=== PATIENT | male | born 1960 | race Hispanic/Latino ===

== ENCOUNTER 2017-03-17 02:59 | Observation (INO) | payer MEDICARE, OTHER ==
[2017-03-17 03:00] VITALS: BMI 26.5
--- NOTE | 2017-03-17 03:04 | EDPD ---
HPI Stroke - General Time Seen by Provider: 03/17/17 03:01 Historian: Patient - History of Present Illness Narrative History of Present Illness (Free Text): 03/17/17 03:03 Michael Sanchez is a 56 year old male, whose past medical history includes PE, CVA with residual left hand weakness, COPD, herniated discs, and osteoarthritis , who presents to the Emergency department who presents to the Emergency department complaining of numbness tonight. Patient states at 01:30 tonight he began experiencing numbness to bilateral hands while lying down in bed watching TV. Patient also reports numbness to bilateral feet. Patient denies any headache , dizziness, vision changes, focal neurological deficits, chest pain, shortness of breath, nausea, vomiting, neck pain,or any other complaints. PMD: Dr. Galo Barrera Date:: 03/17/17 Time: 03:03 Onset:: Hours Timing: Currently Symptomatic Context: Home Associated Symptoms: Numbness Exacerbated by: Nothing Relieved by: Nothing - Location Location: None Locate Right: Upper extremity Locate Left: Upper extremity rTPA Inclusion/Exclusion - Refusal of Treatment Patient Refused Treatment: No - Inclusion Criteria for Altepase Patient is 18 years or Older: Yes The Clinical Diagnosis of Ischemic Stroke That is Causing a Potentially Disabling Neurological Deficit: No Time of Onset is Well Established to be Less Than 270 Minute Before Treatment Would Begin: Yes Risk/Benefit Discussed With Patient/Family Member Present: Yes - Exclusion Criteria for Altepase Uncontrolled Hypertension at Time of Treatment (Systolic BP above 185 or Diastolic BP above 110 mmHg): No Active Internal Bleeding: No Known Bleeding Diathesis Including but Not Limited to: Platelets Below 100,000/ mm,PTT Above 40 sec After Heparin Use, Current Use of Oral Anitcoagulant With INR Greater Than 1.7 or PT Greater Than 15 secs: No Evidence of an Intracranial Hemorrhage: No Evidence of Major Acute Infarct With Signs Greater Than 1/3 MCA Territory: No Suspicion of Subarachnoid Hemorrhage on Pretreatment Evaluation Even if CT Head Negative For Hemorrhage: No - Warning to TPA With Conditions Following Conditions Weighed Against Anticipated Benefit: Yes Condition: Stroke Serevity Too Mild Past Medical History - Provider Review Nursing Documentation Reviewed: Yes - Infectious Disease Hx of Infectious Diseases: None - Cardiac Hx Cardiac Disorders: Yes - Pulmonary Hx Respiratory Disorders: Yes Hx Pneumonia: Yes - Neurological Hx Neurological Disorder: Yes HX Cerebrovascular Accident: Yes (left hand weakness) - HEENT Hx HEENT Disorder: Yes (USES GLASSES) - Renal Hx Renal Disorder: No - Endocrine/Metabolic Hx Endocrine Disorders: No - Hematological/Oncological Hx Blood Disorders: No - Integumentary Hx Dermatological Disorder: No Other/Comment: SCARRING FROM SURGERIES - Musculoskeletal/Rheumatological Hx Musculoskeletal Disorders: Yes Hx Arthritis: Yes Hx Falls: Yes Other/Comment: MULTIPLE SURGERIES FROM INJURY SUFFERED WHEN [facility] WAS BOMBED - WORKING AT THE GARAGE. FELL OFF A LADDER. BILATERAL ANKLE METAL PLATES PLACED, BILATERAL WRIST WITH METAL PLATES PLACED,LAMINECTOMY,DISLOCATED HIP,5 KNEE SURGERIES. - Gastrointestinal Hx Gastrointestinal Disorders: No - Genitourinary/Gynecological Hx Genitourinary Disorders: No - Psychiatric Hx Psychophysiologic Disorder: No Hx Anxiety: Yes Hx Substance Use: No - Surgical History Hx Orthopedic Surgery: Yes (LAMINECTOMY,5 KNEE SX,BILATERALWRIST,ANKLE WITH METAL PLATE,DISLOCATED HIP) Other/Comment: TONSILLECTOMY - Anesthesia Hx Anesthesia: Yes Hx Anesthesia Reactions: No Hx Malignant Hyperthermia: No Family/Social History - Family/Social History Family History: Non-Contributory - Review Nursing documentation reviewed.: Yes Allergies/Home Meds Allergies/Adverse Reactions: Allergies No Known Allergies Allergy (Verified 07/15/16 16:36) Home Medications: Home Meds Medication Instructions Recorded Confirmed ALPRAZolam [Xanax] 1.5 mg PO QID 03/17/17 03/17/17 Esomeprazole Magnesium [Nexium] 20 mg PO DAILY 03/17/17 03/17/17 Oxycodone HCl [Oxycontin] 30 mg PO QID 03/17/17 03/17/17 Zolpidem Tartrate [Ambien] 10 mg PO HS 03/17/17 03/17/17 Review of Systems - Physician Review All systems were reviewed & negative as marked: Yes - Review of Systems Constitutional: Normal Eyes: Normal ENT: Normal Respiratory: Normal. absent: SOB, Cough Cardiovascular: Normal. absent: Chest Pain Gastrointestinal: Normal. absent: Abdominal Pain, Diarrhea, Vomiting Genitourinary Male: Normal. absent: Dysuria, Frequency, Hematuria, Urinary Output Changes Musculoskeletal: Normal, Back Pain. absent: Neck Pain Skin: Normal Neurological: Other (+numbness). absent: Headache, Dizziness Endocrine: Normal Hemo/Lymphatic: Normal Psychiatric: Normal ED Stroke Physical Exam Vital Signs Reviewed: Yes Temperature: Afebrile Blood Pressure: Normal Pulse: Regular Respiratory Rate: Normal Appearance: Positive for: Well-Appearing, Non-Toxic, Comfortable Pain Distress: None Mental Status: Positive for: Alert and Oriented X 3 - Systems Exam Head: Present: Atraumatic, Normocephalic Pupils: Present: PERRL Extroacular Muscles: Present: EOMI Conjunctiva: Present: Normal Mouth: Present: Moist Mucous Membranes Neck: Present: Normal Range of Motion Respiratory/Chest: Present: Clear to Auscultation, Good Air Exchange. No: Respiratory Distress, Accessory Muscle Use Cardiovascular: Present: Regular Rate and Rhythm, Normal S1, S2. No: Murmurs Abdomen: Present: Normal Bowel Sounds. No: Tenderness, Distention, Peritoneal Signs Back: Present: GCS, CN, SP Upper Extremity: Present: Normal Inspection. No: Cyanosis, Edema Lower Extremity: Present: Normal Inspection. No: Edema Neurologic: Present: GCS=15, CN II-XII Intact, Speech Normal, Motor Func Grossly Intact, Normal Sensory Function, Normal Cerebellar Funct, Memory Normal. No: Pronator Drift, Facial Droop Skin: Present: Warm, Dry, Normal Color. No: Rashes Lymphatic: Present: OX3, NI, NC Psychiatric: Present: Alert, Oriented x 3, Normal Insight, Normal Concentration Medical Decision Making ED Course and Treatment: 03/17/17 03:03 Impression: 56 year old male complaining of numbness to bilateral hands and feet. Differential Diagnosis included but are not limited to: TIA vs. CVA Plan: -- CT Head w/o contrast -- EKG -- Chest X-ray -- Labs, lipid panel, troponin, blood type and screen -- Reassess and disposition Prior Visits: Notes and results from previous visits were reviewed. On 07/15/2016, pt was seen in the Emergency department for productive cough, chills, and fever. Pt was admitted to the hospital for further evaluation. Progress Notes: 03/17/17 03:03 Pt seen on arrival to Emergency department. Code Stroke called. Pt taken to CT scan. 03/17/17 03:29 Reviewed EKG, NSR at [address]-segment elevations or depressions, no T-wave inversions, normal intervals. 03/17/17 03:32 Reviewed Chest X-ray, shows no acute processes. 03/17/17 03:55 03/17/17 04:[address] Silva, who is aware and agrees with plan. Accepts pt in to his service. Pt will go to Telemetry observation for TIA. Pt is no acute distress. Discussed results and hospital observation plan with pt , who is aware and verbalizes understanding. 03/17/17 05:21 CT Head shows: Brain: Extensive right cerebral encephalomalacia. No hemorrhage. No significant white matter disease. No edema. Ventricles: No acute findings. No ventriculomegaly. Bones/joints: No acute findings. No acute fracture. Soft tissues: No acute findings. Sinuses: No acute findings. No acute sinusitis. Mastoid air cells: No acute findings. No mastoid effusion. IMPRESSION: Extensive right cerebral encephalomalacia. No definite acute findings. If there is continued clinical concern for acute ischemia, consider diffusion-weighted MRI imaging. - Lab Interpretations I have reviewed the lab results: Yes - RAD Interpretation [employer]: ED Physician, Radiologist - EKG Interpretation Interpreted by ED Physician: Yes Type: 12 lead EKG - Scribe Statement The provider has reviewed the documentation as recorded by the Scribe Reyna Benson Provider Scribe Attestation: All medical record entries made by the Scribe were at my direction and personally dictated by me. I have reviewed the chart and agree that the record accurately reflects my personal performance of the history, physical exam, medical decision making, and the department course for this patient. I have also personally directed, reviewed, and agree with the discharge instructions and disposition. NIHSS Scale ([place]) Time Performed: 03:03 - How Severe is the Stoke Baseline Level of Consciousness: 0=Alert LOC to Questions: 0=Both comments correct LOC to commands: 0=Obeys both correctly Best Gaze: 0=Normal Visual: 0=No visual loss Facial: 0=Normal Motor Arm - Left: 0=No drift Motor Arm - Right: 0=No drift Motor Leg - Left: 0=No drift Motor Leg - Right: 0=No drift Limb Ataxia: 0=Absent Sensory: 0=Normal Best Language: 0=No aphasia Dysarthia: 0=Normal articulation Extinction & Inattention (Neglect): 0=Normal, no object Score: 0 Risk Level: No Stroke Risk Disposition/Present on Arrival - Present on Arrival Any Indicators Present on Arrival: No History of DVT/PE: No History of Uncontrolled Diabetes: Yes Urinary Catheter: No History Surgical Site Infection Following: Orthopedic Procedures - Disposition Have Diagnosis and Disposition been Completed?: Yes Diagnosis: Transient ischemic attack Disposition: HOSPITALIZED Disposition Time: 04:25 Condition: GOOD
[2017-03-17 03:40] VITALS: BP 119/83; PULSE 85; RESP 14; TEMP 98.5; O2SAT 97
[2017-03-17 03:47] LABS: BASO # 0.03 K/mm3 (0.0-2.0); BASO % 0.3 % (0.0-3.0); EOS # 0.3 (0.0-0.7); GRAN # 6.02 (1.4-6.5); GRAN % 59.5 % (50.0-68.0); HEMATOCRIT 40.6 % (42.0-52.0); LYMPH # 3.1 (1.2-3.4); LYMPH % 30.7 % (22.0-35.0); MEAN CELL VOLUME 91.4 fl (80.0-105.0); MEAN CORPUSCULAR HEMOGLOBIN 31.3 pg (25.0-35.0); MEAN CORPUSCULAR HGB CONC 34.2 g/dl (31.0-37.0); MEAN PLATELET VOLUME 10.2 fl (7.0-11.0); MONO # 0.7 (0.1-0.6); MONO % 6.5 % (1.0-6.0); RED CELL DISTRIBUTION WIDTH 13.2 % (11.5-14.5); WHITE BLOOD COUNT 10.1 10^3/ul (4.5-11.0)
[2017-03-17 03:49] LABS: ALB/GLOB RATIO 1.5 (1.1-1.8); ALKALINE PHOSPHATASE 60 U/L (38-133); ALT/SGPT 36 U/L (7-56); AST/SGOT 24 U/L (15-59); BILIRUBIN,TOTAL 0.2 mg/dL (0.2-1.3); BLOOD UREA NITROGEN 14 mg/dL (7-21); CALCIUM 9.1 mg/dL (8.4-10.5); CARBON DIOXIDE 27 mmol/L (21-33); CHLORIDE 102 mmol/L (98-107); CHOLESTEROL 183 mg/dL (130-200); GFR AFRICAN-AMERICAN > 60; GLUCOSE,RANDOM 115 mg/dL (70-110); POTASSIUM 3.9 mmol/L (3.6-5.0); SODIUM 139 mmol/L (132-148)
[2017-03-17 03:55] LABS: INR 1.15 (0.93-1.08); PARTIAL THROMBOPLASTIN TIME 29.2 Seconds (23.7-30.8)
[2017-03-17] MEDS ORDERED: oxyCODONE 30 mg Immediate Release Tab PO STA (03:55)
[2017-03-17 04:01] LABS: TROPONIN I < 0.01 ng/mL
--- NOTE | 2017-03-17 07:31 | CT ---
PROCEDURE: CT HEAD WITHOUT CONTRAST. HISTORY: Code Stroke COMPARISON: 11/07/2015. TECHNIQUE: Axial computed tomography images were obtained through the head/brain without intravenous contrast. Radiation dose: Total exam DLP = 757.35 mGy-cm. This CT exam was performed using one or more of the following dose reduction techniques: Automated exposure control, adjustment of the mA and/or kV according to patient size, and/or use of iterative reconstruction technique. FINDINGS: HEMORRHAGE: No intracranial hemorrhage. BRAIN: There is a large area of cystic encephalomalacia and gliosis in the right frontal, parietal and temporal lobes with volume loss and ex vacuo dilatation of the right lateral ventricle. There is Wallerian degeneration of the pyramidal tract. There is no mass, mass effect or abnormal extra-axial fluid collection VENTRICLES: The left lateral ventricle is normal in size, shape and configuration. CALVARIUM: The skull base and calvarium are normal. PARANASAL SINUSES: There is moderate mucoperiosteal thickening in the ethmoid air cells. MASTOID AIR CELLS: Predominantly clear. OTHER FINDINGS: None. IMPRESSION: 1. No acute intracranial abnormality.If there is a persistent focal neurologic deficit and an ongoing clinical concern for acute infarction, an MRI of the brain without intravenous contrast would be a more sensitive modality for evaluation of hyperacute/acute ischemic infarction. 2. Large cystic encephalomalacia and gliosis in the right frontal, parietal and temporal lobes, a sequela of remote MCA territory infarction. A preliminary report was provided by [employer] [facility].
--- NOTE | 2017-03-17 07:48 | RAD ---
HISTORY: CVA COMPARISON: 07/25/2016. FINDINGS: LUNGS: The lungs are well inflated and clear. PLEURA: No significant pleural effusion identified, no pneumothorax apparent. CARDIOVASCULAR: Normal. OSSEOUS STRUCTURES: No significant abnormalities. VISUALIZED UPPER ABDOMEN: Normal. OTHER FINDINGS: None. IMPRESSION: No active pulmonary disease.
--- NOTE | 2017-03-17 15:39 | CARD ---
APPROVED REPORT EKG Measurement Heart [id number] <Conclusion> Normal sinus rhythm Normal ECG
== END 2017-03-17 06:56 | disposition left against medical advice (07) ==
LOC: ED 02:59 → ERH 04:05 → 2RNO 05:01
PROVIDERS: ADMIT Internal Medicine Nephrology; ATTEND Internal Medicine Nephrology
DX: R20.0 Anesthesia of skin (principal); J44.9 Chronic obstructive pulmonary disease, unspecified; I69.354 Hemiplegia and hemiparesis following cerebral infarction affecting left non-dominant side; G93.89 Other specified disorders of brain; M19.90 Unspecified osteoarthritis, unspecified site; M51.9 Unspecified thoracic, thoracolumbar and lumbosacral intervertebral disc disorder
CPT/HCPCS: 70450; 71010; 80053; 80061; 83036; 84484; 85025; 85610; 85730; 86850; 86900; 93005; 99285; G0378

== ENCOUNTER 2018-07-16 10:55 | Day surgery (SDC) | payer MEDICARE, OTHER ==
[2018-07-13 11:28] VITALS: BMI 30.5
[2018-07-16 11:51] LABS: BASO # 0.03 K/mm3 (0.0-2.0); BASO % 0.4 % (0.0-3.0); EOS # 0.3 (0.0-0.7); EOS % 4.2 % (1.5-5.0); GRAN # 3.85 (1.4-6.5); GRAN % 57.2 % (50.0-68.0); HEMOGLOBIN 13.4 g/dL (14.0-18.0); MEAN CELL VOLUME 89.2 fl (80.0-105.0); MEAN CORPUSCULAR HGB CONC 33.7 g/dl (31.0-37.0); MEAN PLATELET VOLUME 9.8 fl (7.0-11.0); MONO # 0.6 (0.1-0.6); MONO % 8.2 % (1.0-6.0); RBC 4.46 10^6/uL (3.5-6.1); RED CELL DISTRIBUTION WIDTH 13.4 % (11.5-14.5); WHITE BLOOD COUNT 6.7 10^3/uL (4.5-11.0)
[2018-07-16 11:59] LABS: INR 1.41; PARTIAL THROMBOPLASTIN TIME 33.5 Seconds (25.1-36.5); PROTHROMBIN TIME 16.3 SECONDS (9.4-12.5)
[2018-07-16 12:01] LABS: BLOOD UREA NITROGEN 7 mg/dL (7-21); CALCIUM 8.9 mg/dL (8.4-10.5); GFR NON-AFRICAN AMERICAN > 60
[2018-07-16] MEDS ORDERED: Lidocaine 2% Inj (20ml) ONE (14:35)
[2018-07-16] MEDS ORDERED: Nitroglycerin 50mg in D5W 50 MG/250 ML BOTTLE IV ONE (14:35)
[2018-07-16] MEDS ORDERED: Iodixanol 320 MG/ML 200 ML BOTTLE IV ONE ×2 (14:35→14:37)
[2018-07-16] MEDS ORDERED: Midazolam 2 MG/2 ML VIAL ONE ×3 (14:54→15:30)
[2018-07-16] MEDS ORDERED: Oxycodone/Acetaminophen 5/325 mg Tab PO PRN (16:22)
[2018-07-16] MEDS ORDERED: Sodium Chloride 0.45% 1,000 ML IV SCH (16:30)
[2018-07-16] MEDS ORDERED: Oxycodone/Acetaminophen 5/325 mg Tab ONE (16:31)
[2018-07-16 17:14] VITALS: RESP 18; TEMP 98.7
[2018-07-16 18:51] VITALS: O2SAT 98
[2018-07-16 18:55] VITALS: BP 133/85; PULSE 82
--- NOTE | 2018-07-16 19:19 | VASCULAR ---
Date of service: 07/16/2018 PROCEDURE: 1. Abdominal aortogram and bilateral lower extremity runoff with bilateral punctures. 2. Kissing bilateral common iliac artery angioplasty and stent placement HISTORY: Severe peripheral vascular disease. Bilateral lower extremity claudication. Left common iliac artery occlusion. Right common iliac artery stenosis PHYSICIAN(S): Mateusz Barrera M.D. TECHNIQUE: The relative risks and indications of the procedure were explained to the patient and consent obtained. The patient was hydrated prior to the procedure and the appropriate labs drawn. The patient was placed supine on the arteriogram table and both groins prepped and draped in the usual sterile fashion. Conscious sedation and monitoring were provided throughout the procedure by a nurse. Under ultrasound guidance, the right common femoral artery was punctured with a micropuncture set. A 5 Brazilian sheath was placed. Five Brazilian flush catheter was placed the abdominal aorta and a PA DSA abdominal pelvic arteriogram performed. The catheter was pulled down the bifurcation and bilateral oblique DSA pelvic arteriograms performed. Overlapping bilateral lower extremity DSA arteriograms were obtained from the inguinal ligaments to the ankles. Exchange is made for a 5 Brazilian sauce 3 catheter which was placed in the stump of the occluded left common iliac artery. A subintimal course was encountered trying to cross the chronic left common iliac artery occlusion. Subsequently the left common femoral artery was punctured under ultrasound guidance with a micropuncture set. A 7 Brazilian 25 cm sheath was placed. The left common iliac artery occlusion was crossed in a retrograde fashion with a 5 Brazilian catheter and angled Glidewire Bilateral 0.035 beny and support wire for placed the thoracic aorta. Bilateral 7 Brazilian, 25 cm sheaths were placed. Kissing common iliac artery angioplasty is were performed with 7 mm balloons. Next kissing 8 mm balloon expandable stents were deployed at the aortic bifurcation. An 8 x 59 cm she stent was deployed in the left common iliac artery and an 8 x 29 mm stent deployed in the right common iliac artery. A 2nd 8 mm by 39 mm balloon expandable stent was deployed in the distal left common iliac artery. Kissing 9 mm balloons were used to dilate the aortic bifurcation and proximal stents. Completion angiograms were obtained. The sheath removed hemostasis obtained with a Perclose devices. The patient tolerated the procedure well. FINDINGS: There are single renal arteries bilaterally which are patent. The nephrograms are symmetric in appearance. There is smooth calcified disease the infrarenal abdominal aorta. There is a chronic occlusion of the left common iliac artery. There is a calcified severe focal stenosis of the right common iliac artery origin. The internal iliac arteries are patent. The external iliac arteries are patent bilaterally. The infrainguinal runoff is normal bilaterally to the trifurcation. There is 3 vessel tibial runoff bilaterally though the anterior tibial arteries are small in caliber. IMPRESSION: 1.Successful kissing bilateral common iliac artery angioplasty and stent placement 2. Relatively normal infrainguinal runoff
== END 2018-07-16 19:30 | disposition home or self-care (01) ==
LOC: SDSVAS 10:55
PROVIDERS: ATTEND Radiology Vascular & Interventional Radiology
DX: I73.9 Peripheral vascular disease, unspecified (principal); I74.5 Embolism and thrombosis of iliac artery; J44.9 Chronic obstructive pulmonary disease, unspecified; F17.200 Nicotine dependence, unspecified, uncomplicated